=== PATIENT | female | born 1990 | race Caucasian/White ===

== ENCOUNTER 2018-09-02 07:39 | Emergency (ER) | payer MEDICAID, OTHER ==
[2018-09-02] MEDS ORDERED: ONDANSETRON ODT 4 MG TABLET TL STA (08:23)
[2018-09-02] MEDS ORDERED: oxyCODONE 5 MG TABLET PO STA (08:23)
--- NOTE | 2018-09-02 08:26 | ED Physician Documentation ---
PD HPI ABD PAIN - Stated complaint Stated Complaint: BACK/R SIDE PX - Chief complaint Chief Complaint: Back Pain - History obtained from History obtained from: Patient, Family - History of Present Illness Timing - onset: Last night Timing - duration: Hours (12) Timing - details: Gradual onset, Waxing and waning Pain level max: 10 Pain level now: 5 Quality: Aching, Pain Location: Other (R flank) Radiation: Other (R groin) Improved by: Other (ibuprofen) Worsened by: Other (nothing) Associated symptoms: Nausea. No: Fever, Vomiting, Hematemesis, Diarrhea, Constipation, Melena, Hematochezia, Dysuria, Hematuria, Chest pain, Dizzy, Near syncope / syncope, Loss of appetite, Weight loss, Vaginal bleeding, Vaginal dc Similar symptoms before: Diagnosis (States had kidney stones several years ago.) Recently seen: Not recently seen Review of Systems Constitutional: denies: Fever GI: denies: Nausea, Vomiting, Diarrhea Skin: denies: Rash Musculoskeletal: denies: Neck pain, Back pain Neurologic: denies: Focal weakness, Numbness, Headache PD PAST MEDICAL HISTORY - Past Medical History Past Medical History: Yes Respiratory: Asthma - Past Surgical History Past Surgical History: No - Present Medications Home Medications: Ambulatory Orders Medication Instructions Recorded Confirmed Ibuprofen [Motrin] 800 mg PO Q8H PRN #30 tablet 09/02/18 Ondansetron Odt [Zofran] 4 mg TL Q6H PRN #10 tablet 09/02/18 Oxycodone HCl/Acetaminophen 1 - 2 each PO Q6H PRN #14 tablet 09/02/18 [Percocet 5-325 mg Tablet] - Allergies Allergies/Adverse Reactions: Allergies Allergy/AdvReac Type Severity Reaction Status Date / Time No Known Drug Allergies Allergy Verified 09/02/18 07:57 - Social History Does the pt smoke?: No Smoking Status: Never smoker Does the pt drink ETOH?: No - Immunizations Immunizations are current?: Yes PD ED PE NORMAL - Vitals Vital signs reviewed: Yes - General General: Alert and oriented X 3, No acute distress, Well developed/nourished - HEENT HEENT: PERRL, Moist mucous membranes - Neck Neck: Supple, no meningeal sign - Cardiac Cardiac: RRR, Strong equal pulses - Respiratory Respiratory: No respiratory distress, Clear bilaterally - Abdomen Abdomen: Soft, Non tender, Non distended - Back Back: No CVA TTP, No spinal TTP - Derm Derm: Warm and dry - Extremities Extremities: No edema, No calf tenderness / cord - Neuro Neuro: Alert and oriented X 3 - Psych Psych: Normal mood, Normal affect Results - Vitals Vitals: Vital Signs - 24 hr 09/02/18 09/02/18 07:55 09:36 Temperature 36.5 C Heart Rate 114 H 91 Respiratory 16 15 Rate Blood Pressure 146/97 H 144/100 H O2 Saturation 99 98 Oxygen O2 Source Room air - Labs Labs: Laboratory Tests 09/02/18 08:05 Urine Color YELLOW Urine Clarity CLEAR Urine pH 7.0 Ur Specific [place] 1.020 Urine Protein NEGATIVE Urine Glucose (UA) NEGATIVE Urine Ketones NEGATIVE Urine Occult Blood TRACE-INTA Urine Nitrite NEGATIVE Urine Bilirubin NEGATIVE Urine Urobilinogen 0.2 (NORMAL) Ur Leukocyte Esterase NEGATIVE Ur Microscopic Review NOT INDICATED Urine Culture Comments NOT INDICATED Urine HCG, Qual NEGATIVE - Rads (name of study) CT abdomen pelvis Radiology: Prelim report reviewed, EMP read contemporaneously, See rad report (4 mm stone at the right UVJ. 3 mm nonobstructing stone in the left kidney) PD MEDICAL DECISION MAKING - ED course Complexity details: reviewed results, re-evaluated patient, considered differential, d/w patient, d/w family ED course: 27-year-old female with a right sided ureteral stone. Pain well controlled. No evidence of urinary infection. No fevers. No vomiting. Will place on pain medication for home and follow-up with her doctor. Patient counseled regarding signs and symptoms for which I believe and urgent re-evaluation would be necessary. Patient with good understanding of and agreement to plan and is comfortable going home at this time This document was made in part using voice recognition software. While efforts are made to proofread this document, sound alike and grammatical errors may occur. Departure - Departure Disposition: 01 Home, Self Care Clinical Impression: Right ureteral stone Condition: Good Instructions: ED Stone Renal W Colic Follow-Up: Juanis Cota MD [Primary Care Provider] - Within 1 week Prescriptions: Ibuprofen [Motrin] 800 mg PO Q8H PRN #30 tablet PRN Reason: PAIN &/OR FEVER Ondansetron Odt [Zofran] 4 mg TL Q6H PRN #10 tablet PRN Reason: Nausea / Vomiting Oxycodone HCl/Acetaminophen [Percocet 5-325 mg Tablet] 1 - 2 each PO Q6H PRN #14 tablet PRN Reason: pain Comments: Use the medications prescribed. Return if you worsen. You have a 4 mm stone at the right ureterovesicular junction. This should pass into the bladder. You also have a 3 mm stone in your left kidney. Make sure to drink plenty of water. The Motrin will help to stop the spasming of the ureter. Do not drink alcohol or drive while on narcotic pain medicine. Note that many narcotic pain relievers also contain tylenol/acetaminophen. Please ensure that your total dose of acetaminophen from all sources does not exceed 3 grams (3000mg) per day. You may constipated on this medication, take a stool softener such as "Colace" twice a day while you are on it. Also recommend a mtrc-dyj-nybwdee laxative such as senna or MiraLAX any day that you do not have a bowel movement. If you received narcotic pain medication in the emergency department, do not drive or operate machinery for the next 24 hours. Discharge Date/Time: 09/02/18 09:36
[2018-09-02 08:36] LABS: BILIRUBIN,URINE NEGATIVE (NEGATIVE); GLUCOSE, URINE (UA) NEGATIVE (NEGATIVE); KETONES,URINE (UA) NEGATIVE (NEGATIVE); LEUKOCYTE ESTERASE, URINE NEGATIVE (NEGATIVE); NITRITE,URINE NEGATIVE (NEGATIVE); OCCULT BLOOD,URINE TRACE-INTA (NEGATIVE); PROTEIN,URINE NEGATIVE (NEGATIVE); UROBILINOGEN,URINE 0.2 (NORMAL) E.U./dL (NORMAL)
[2018-09-02 08:45] LABS: CLARITY,URINE CLEAR (CLEAR)
[2018-09-02 08:46] LABS: HCG UR QUAL NEGATIVE
--- NOTE | 2018-09-02 09:22 | CT Report ---
Reason: R flank pain Procedure Date: 09/02/2018 Accession Number: [id number] / [id number] Procedure: CT - Abdomen/Pelvis WO CPT Code: FULL RESULT: EXAM: CT ABDOMEN AND PELVIS (CT KUB) EXAM DATE: 09/02/2018 08:57 AM. CLINICAL HISTORY: R flank pain. COMPARISONS: ABDOMEN/PELVIS W/O 11/26/2013 2:56 AM. TECHNIQUE: Routine axial helical CT imaging was performed through the abdomen and pelvis without IV contrast. Reconstructions: Coronal and sagittal. In accordance with CT protocol optimization, one or more of the following dose reduction techniques were utilized for this exam: automated exposure control, adjustment of mA and/or KV based on patient size, or use of iterative reconstructive technique. FINDINGS: Lung Bases: Unremarkable. Right Kidney/Ureter: Obstructing 4 mm stone in the distal right ureter at the ureterovesical junction with upstream hydroureter and mild hydronephrosis. Left Kidney/Ureter: There is a nonobstructing 3 mm stone in the left kidney. Other Solid Organs: Noncontrast images of the solid organs are grossly unremarkable. Gallbladder/Bile Ducts: Unremarkable. Peritoneal Cavity: No free fluid, free air or marianela adenopathy. Bowel is grossly unremarkable. Pelvic Organs: No bladder stones or wall thickening. Noncontrast images of the visualized pelvic organs are unremarkable. Vasculature: Unremarkable. Other: None. IMPRESSION: 1. Obstructing 4 mm stone in the distal right ureter at the ureterovesical junction with upstream hydroureter and mild hydronephrosis. 2. There is a nonobstructing 3 mm stone in the left kidney. RADIA
[2018-09-02 09:37] VITALS: BP 144/100
== END 2018-09-02 09:36 | disposition home or self-care (01) ==
LOC: ED 07:39
DX: N13.2 Hydronephrosis with renal and ureteral calculous obstruction (principal)
CPT/HCPCS: 74176; 81003; 81025; 99283; 99284; A9270; Q0162; 81001; 87086